=== PATIENT | female | born 1960 | race Caucasian/White ===

== ENCOUNTER 2018-12-15 16:21 | Emergency (ER) | payer OTHER ==
[2018-12-15 16:49] VITALS: RESP 20
[2018-12-15] MEDS ORDERED: Sodium Chloride 0.9% 1,000 ML IV STA (17:29)
[2018-12-15] MEDS ORDERED: Magnesium Sulfate 1 gm in D5W 1 GM/100 ML BAG IVPB STA (17:29)
--- NOTE | 2018-12-15 17:29 | C.PDOC ---
History Of Present Illness Patient is a 58 year old female, with a PMHx of migraines and HTN, presenting to the ED c/o a worse than usual headache that has been present for the past 3 days. Patient states that she takes Excedrin for her migraines as needed, but her symptoms have not resolved this time. Patient notes nausea, vomiting, and light sensitivity. She denies fever, trauma, or any other associated symptoms. Patient is complaint with her BP medication and took her last dose today. WORSE THAN USUAL FIGUEROA X 3 DAYS. HO MIGRAINE, HTN. PS TAKES EXCEDRIN FOR MIGRAINE NEEDED BUT NO IMPROVE THIS TIME. +NV, LIGHT SENSITIVE. NO FEVER, TRAUMA. PS COMPLIANT W HER BP MEDS, LAST DOSE TODAY. DENIES OTHER ASSOC SX EXAM MILD DIST NONTOXIC HEENT MILD PHOTOPHOBIA MMM NECK SUPPLE NO MENINGISMUS NEURO NO FOCAL DEF ABD NEG REMAINDER NEG Time Seen by Provider: 12/15/18 17:21 Chief Complaint (Nursing): Headache History Per: Patient History/Exam Limitations: no limitations Onset/Duration Of Symptoms: Days (3 ) Current Symptoms Are (Timing): Still Present Associated Symptoms: Photophobia, Nausea, Vomiting Recent travel outside of the [place]: No Additional History Per: Patient Past Medical History Reviewed: Historical Data, Nursing Documentation, Vital Signs Vital Signs: Last Vital Signs Temp 98.2 F 12/15/18 16:46 Pulse 82 12/15/18 16:46 Resp 20 12/15/18 16:46 BP 153/99 H 12/15/18 16:46 Pulse Ox 97 12/15/18 16:46 - Medical History PMH: No Chronic Diseases, HTN Surgical History: Cholecystectomy Family History: States: Unknown Family Hx - Social History Hx Tobacco Use: No Hx Alcohol Use: No Hx Substance Use: No - Immunization History Hx Tetanus Toxoid Vaccination: No Hx Influenza Vaccination: No Hx Pneumococcal Vaccination: No Review Of Systems Except As Marked, All Systems Reviewed And Found Negative. Constitutional: Positive for: Fever Gastrointestinal: Positive for: Nausea, Vomiting Neurological: Positive for: Other (light sensitivity ) Physical Exam - Physical Exam Appears: Non-toxic, In Acute Distress (mild ) Head: Atraumatic, Normacephalic Eye(s): bilateral: Other (mild photophobia ) Ear(s): Bilateral: Normal Nose: Normal Oral Mucosa: Moist Throat: Normal Neck: Supple, No Other (meningismus ) Chest: Symmetrical, No Deformity Cardiovascular: Rhythm Regular, No Murmur Respiratory: Normal Breath Sounds, No Rales, No Rhonchi, No Wheezing Gastrointestinal/Abdominal: Soft, No Tenderness, No Guarding, No Rebound Extremity: Normal ROM Neurological/Psych: Oriented x3, Normal Speech, Normal Cognition, No Other (focal deficits ) ED Course And Treatment O2 Sat by Pulse Oximetry: 97 (on RA) Pulse Ox Interpretation: Normal - CT Scan/US CAT Head Other Rad Studies (CT/US): Read By Radiologist, Radiology Report Reviewed CT/US Interpretation: IMPRESSION: No acute intracranial pathology identified. Mucosal thickening of the ethmoid air cells and sphenoid sinuses. Fluid is seen within the left sphenoid sinus. Correlate clinically for sinusitis. Progress Note: Plan: CAT Head. Tylenol 975mg PO. Toradol 30mg IVP. Magnesium Sulfate IV. Reglan 10 mg IVP. IV Fluids Progress - Re-Evaluation Re-evaluation Note: 12/15/18 18:38 FEELS BETTER NEURO INTACT - Data Reviewed Data Reviewed: Diagnostic imaging, Old records Disposition Counseled Patient/Family Regarding: Studies Performed, Diagnosis, Need For F [place], Rx Given - Disposition Referrals: YOUR,PMD [Other] Disposition: HOME/ ROUTINE Disposition Time: 19:00 Condition: IMPROVED Prescriptions: Metoclopramide [Reglan] 1 tab PO TID PRN #25 tab PRN Reason: Nausea/Vomiting Instructions: Migraine Headache (DC) Forms: [facility] ([place]) - Clinical Impression Clinical Impression: Migraine, Hypertension - Scribe Statement The provider has reviewed the documentation as recorded by the Lizet Cartagena All medical record entries made by the Lizet were at my direction and personally dictated by me. I have reviewed the chart and agree that the record accurately reflects my personal performance of the history, physical exam, medical decision making, and the department course for this patient. I have also personally directed, reviewed, and agree with the discharge instructions and disposition.
[2018-12-15] MEDS ORDERED: Sodium Chloride 0.9% 1,000 ML ONE (17:37)
[2018-12-15] MEDS ORDERED: Magnesium Sulfate 1 gm in D5W 1 GM/100 ML BAG IVPB ONE (17:37)
--- NOTE | 2018-12-15 18:12 | CT ---
Date of service: 12/15/2018 PROCEDURE: CT HEAD WITHOUT CONTRAST. HISTORY: Headache COMPARISON: None available. TECHNIQUE: Axial computed tomography images were obtained through the head/brain without intravenous contrast. Radiation dose: Total exam DLP = 1163.61 mGy-cm. This CT exam was performed using one or more of the following dose reduction techniques: Automated exposure control, adjustment of the mA and/or kV according to patient size, and/or use of iterative reconstruction technique. FINDINGS: HEMORRHAGE: No intracranial hemorrhage. BRAIN: No mass effect or edema. Simon-white matter differentiation appears intact. Please note that MRI with diffusion imaging is more sensitive in the detection of acute ischemic event. VENTRICLES: No hydrocephalus. CALVARIUM: Unremarkable. PARANASAL SINUSES: Mucosal thickening of the ethmoid air cells and sphenoid sinuses. Fluid is seen within the left sphenoid sinus. MASTOID AIR CELLS: Unremarkable as visualized. No inflammatory changes. OTHER FINDINGS: None. IMPRESSION: No acute intracranial pathology identified. Mucosal thickening of the ethmoid air cells and sphenoid sinuses. Fluid is seen within the left sphenoid sinus. Correlate clinically for sinusitis.
[2018-12-15 18:45] VITALS: BP 147/84; PULSE 72; TEMP 98.7
[2018-12-15 18:52] VITALS: O2SAT 97
== END 2018-12-15 19:06 | disposition home or self-care (01) ==
LOC: C.ER 16:21
DX: G43.909 Migraine, unspecified, not intractable, without status migrainosus (principal); I10 Essential (primary) hypertension
CPT/HCPCS: 70450; 96365; 96375; 99285; J1885; J2765; J3475; J7030